=== PATIENT | female | born 1970 | race Caucasian/White ===

== ENCOUNTER 2018-05-31 01:13 | Emergency (ER) | payer MEDICAID ==
[2018-05-31] MEDS: DIPHENHYDRAMINE 50 MG INJ IM (01:50)
[2018-05-31] MEDS: DEXAMETHASONE 10 MG/ML 1 ML INJ IM (02:12)
== END 2018-05-31 02:45 | disposition home or self-care (01) ==
LOC: FTE 01:13
DX: R21 Rash and other nonspecific skin eruption (principal)
CPT/HCPCS: 96372; 99284-25

== ENCOUNTER 2018-10-07 05:52 | Emergency (ER) | payer SELFPAY, MEDICAID ==
[2018-10-07] MEDS: SOD CHLORIDE 0.9% 1,000 ML IV (07:28)
[2018-10-07 07:43] LABS: ADD MAN DIFF? NO
[2018-10-07] MEDS: FAMOTIDINE 20 MG INJ IV (07:44)
[2018-10-07] MEDS: LIDOCAINE/MYLANTA 40 ML BTL PO (07:45)
[2018-10-07 07:46] LABS: BASOPHIL # 0.1 10^3/ul (0.0-0.1); BASOPHILS % 0.5 % (0.0-2.0); EOSINOPHILS # 0.1 10^3/ul (0.0-0.5); EOSINOPHILS % 1.1 % (0.0-7.0); HEMATOCRIT 35.4 % (37.0-47.0); HEMOGLOBIN 11.5 g/dl (12.0-16.0); LYMPHOCYTES # 1.1 10^3/ul (0.8-2.9); LYMPHOCYTES % 9.7 % (15.0-51.0); MEAN CORPUSCULAR HEMOGLOBIN 29.4 pg (29.0-33.0); MEAN CORPUSCULAR HGB CONC 32.5 g/dl (32.0-37.0); MEAN CORPUSCULAR VOLUME 90.5 fl (82.0-101.0); MEAN PLATELET VOLUME 9.2 fl (7.4-10.4); MONOCYTE # 0.7 10^3/ul (0.3-0.9); MONOCYTES % 6.1 % (0.0-11.0); NEUTROPHIL # 9.1 10^3/ul (1.6-7.5); PLATELET COUNT 285 10^3/UL (140-415); RED BLOOD COUNT 3.91 10^6/ul (4.20-5.40); RED CELL DISTRIBUTION WIDTH 13.5 % (11.5-14.5)
[2018-10-07 07:46] LABS: WHITE BLOOD COUNT 11.1 10^3/ul (4.8-10.8)
[2018-10-07 08:11] LABS: ALANINE AMINOTRANSFERASE 45 IU/L (13-69); ALBUMIN 4.1 g/dl (3.3-4.9); ALBUMIN/GLOBULIN RATIO 1.41; ALKALINE PHOSPHATASE 57 IU/L (42-121); ANION GAP 9 (5-13); ASPARTATE AMINO TRANSFERASE 90 IU/L (15-46); BILIRUBIN,INDIRECT 0.1 mg/dl (0-1.1); BILIRUBIN,TOTAL 0.1 mg/dl (0.2-1.3); BLOOD UREA NITROGEN 18 mg/dl (7-20); CALCIUM 9.6 mg/dl (8.4-10.2); CARBON DIOXIDE 28 mmol/L (21-31); CHLORIDE 104 mmol/L (97-110); CREATININE 0.47 mg/dl (0.44-1.00); Estimated GFR > 60 mL/min (>60); GLUCOSE 110 mg/dl (70-220); LIPASE 125 U/L (23-300); POTASSIUM 4.2 mmol/L (3.5-5.1); SODIUM 141 mmol/L (135-144)
[2018-10-07] MEDS: LACTATED RINGER'S 1,000 ML IV (10:30)
[2018-10-07] MEDS: ONDANSETRON 4 MG INJ IV (12:42)
== END 2018-10-07 14:14 | disposition home or self-care (01) ==
LOC: E/R 05:52
DX: T40.4X1A Poisoning by other synthetic narcotics, accidental (unintentional), initial encounter (principal); K29.70 Gastritis, unspecified, without bleeding; Z98.84 Bariatric surgery status
CPT/HCPCS: 36415; 80053; 83690; 85025; 96374; 96375; 99284-25